=== PATIENT | male | born 1945 | race Caucasian/White ===

== ENCOUNTER 2016-07-26 19:11 | Emergency (ER) | payer BC ==
[~2016-07-26] VITALS: Wt 79.0 kg
[~2016-07-26 19:11] MED LIST: AMO500 PO; ASPI-650 PO; BP MED; CARB15DR48 BOTH EARS; IBUP-1542 PO
[2016-07-26] MEDS ORDERED: MECLIZINE 12.5 MG TAB PO ONE (20:30)
[2016-07-26 20:36] LABS: ADD SCAN DIFF NO
[2016-07-26 20:37] LABS: BASOPHILS % 0.5 % (0.0-2.0); EOSINOPHILS # 0.1 10^3/ul (0.0-0.5); EOSINOPHILS % 1.5 % (0.0-7.0); HEMATOCRIT 43.6 % (42.0-52.0); LYMPHOCYTES # 2.2 10^3/ul (0.8-2.9); LYMPHOCYTES % 28.8 % (15.0-51.0); MEAN CORPUSCULAR HGB CONC 36.7 g/dl (32.0-37.0); MEAN PLATELET VOLUME 8.4 fl (7.4-10.4); MONOCYTE # 0.7 10^3/ul (0.3-0.9); NEUTROPHIL # 4.6 10^3/ul (1.6-7.5); NEUTROPHILS % 59.9 % (39.0-77.0); PLATELET COUNT 139 10^3/UL (140-415); RED BLOOD COUNT 4.45 10^6/ul (4.70-6.10); RED CELL DISTRIBUTION WIDTH 12.9 % (11.5-14.5); WHITE BLOOD COUNT 7.6 10^3/ul (4.8-10.8)
[2016-07-26 20:52] LABS: INR 1.02; PROTIME 13.4 Sec (12.2-14.2)
[2016-07-26 20:53] LABS: PARTIAL THROMBOPLASTIN TIME 28.2 Sec (25.0-35.0)
[2016-07-26 21:03] LABS: ADD UMIC YES; URINE BILIRUBIN (Dip) NEGATIVE (NEGATIVE); URINE BLOOD (Dip) TRACE (NEGATIVE); URINE COLOR LT. YELLOW (YELLOW); URINE GLUCOSE (Dip) NEGATIVE (NEGATIVE); URINE KETONES (Dip) NEGATIVE (NEGATIVE); URINE LEUKOCYTE ESTERASE (Dip) NEGATIVE (NEGATIVE); URINE NITRITE (Dip) NEGATIVE (NEGATIVE); URINE TOTAL PROTEIN (Dip) NEGATIVE (NEGATIVE); URINE UROBILINOGEN (Dip) 0.2 E.U./dL (0.1-1.0)
[2016-07-26 21:04] LABS: ANION GAP 14 (8-16); BLOOD UREA NITROGEN 14 mg/dl (7-20); CALCIUM 9.9 mg/dl (8.4-10.2); CARBON DIOXIDE 29 mmol/L (21-31); CHLORIDE 105 mmol/L (97-110); CREATININE 1.06 mg/dl (0.61-1.24); GLUCOSE 128 mg/dl (70-220); POTASSIUM 4.1 mmol/L (3.5-5.1); SODIUM 144 mmol/L (135-144)
[2016-07-26 21:11] LABS: URINE RBCS 0-2 /HPF (0)
[2016-07-26 21:20] LABS: TROPONIN-I < 0.012 ng/ml (0.00-0.12)
[2016-07-26] MEDS ORDERED: SOD CHLORIDE 0.9% 100 ML ONE (21:31)
[2016-07-26] MEDS ORDERED: IODIXANOL LOCM 100 ML BTL ONE (21:31)
--- NOTE | 2016-07-26 22:45 | RADRPT ---
PROCEDURE: CTA Head. CLINICAL INDICATION: Headache TECHNIQUE: CTA of the head was obtained with 1 mm axial images. Sagittal and coronal reformations a nd MIPs were provided. The administered radiation dose was CTDI vol = 33 mGy, DLP = 712 mGy-cm. Liza ges were obtained prior following the intravenous contrast administration of 100 cc Visipaque 320 co ntrast. Coronal and sagittal as well as maximal intensity projection reformations were obtained. COMPARISON: There are no similar studies submitted for comparison. FINDINGS: CTA head: Carotid arteries: Some atherosclerotic calcifications are noted within the cavernous carotid arterie s without significant narrowing. Anterior cerebral arteries: Unremarkable. Middle cerebral arteries: Unremarkable. Posterior cerebral arteries: Unremarkable. Anterior communicating artery: Present. Posterior communicating arteries: Not definitely seen. Basilar artery: Unremarkable. Vertebral arteries: Unremarkable. Vertebral artery dominance: Codominant Aneurysm: No aneurysm is identified. Venous sinuses: Unremarkable. IMPRESSION: No evidence of aneurysm or intracranial arterial stenosis. RPTAT: HIKT .Lorenzo Florian MD, MD Date Time Electronically viewed and signed by .Lorenzo Florian MD, on 07/26/2016 22:45 .T/
[2016-07-26] MEDS ORDERED: ONDA4TAB11 PO (23:02)
[2016-07-26] MEDS ORDERED: MECL-77 PO (23:02)
[2016-07-26 23:22] VITALS: BP 149/92; PULSE 72; RESP 16; TEMP 98.9
--- NOTE | 2016-08-11 04:15 | ERD ---
DATE OF SERVICE: 07/26/2016 HISTORY OF PRESENT ILLNESS: This 70-year-old male comes to the emergency room feeling weak and dizz y. He also has a mild headache. The dizziness is actually a sensation of the room spinning and the refore vertigo. He has gotten nausea when he has felt this vertigo. This has been going on for the last 2 days but mostly today. He has a history of AAA that was repaired. He also has a history of hypertension. He worries that, because he had an aneurysm in his aorta, he may have one in his hea d as well. He stated he is in otherwise good state of health. REVIEW OF SYSTEMS: A 10-point review of systems negative except as in the HPI. PAST MEDICAL HISTORY: Hypertension, abdominal aortic aneurysm. PAST SURGICAL HISTORY: AAA repair. FAMILY HISTORY: Noncontributory. SOCIAL HISTORY: Denies tobacco, alcohol, and other drugs except for occasional social alcohol use. PHYSICAL EXAMINATION: VITAL SIGNS: Temperature 98.1, pulse 98, blood pressure 139/85, respirations 20, oxygen saturation 96% on room air. GENERAL: No acute distress. HEENT: Normocephalic, atraumatic. Pupils equal and reactive to light. EOMI. NECK: Supple, no JVD. No meningismus. HEART: Regular rate and rhythm. LUNGS: Clear to auscultation bilaterally. ABDOMEN: Soft, nontender, nondistended. No palpable masses. EXTREMITIES: No cyanosis, clubbing, or edema. SKIN: No rashes or other lesions. NEUROLOGIC: Alert and oriented x3, cranial nerves II through XII intact. No cerebellar deficits. Normal gait. EMERGENCY DEPARTMENT COURSE AND MEDICAL DECISION MAKING: The vertigo seems peripheral in classifica tion with mild headache. No signs of serious acute process currently. Head CT angiogram was negati ve for aneurysm or significant stenosis. He also had no hemorrhage, no mass effect, no midline shif t. Totally benign laboratory examinations. The patient was given Antivert and also given a liter o f normal saline. His headache subsided completely. No sign of cardiac ischemia or infection. As h is symptoms are much improved with Antivert, I am going to discharge him with both Antivert and Zofr an in case he develops nausea. Return precautions to the ER given as well as primary care followup. IMAGING: CT head angiogram interpretation: I see no acute process. I see no significant stenosis of the rampart of [place] and no aneurysms. There is no hemorrhage, no mass effect, no midline shift that I can see. EKG interpretation: Normal sinus rhythm, rate of 73, normal axis, normal intervals , no ST or T-wave changes concerning for acute ischemia. playground monitor interpretation: Normal si nus rhythm without arrhythmias. DISCHARGE DIAGNOSES: 1. Vertigo. 2. Nausea. 3. Headache. DISPOSITION: Home in stable condition. Dictated By: NIKOLAS SMITH/KENDRICK Conf#: [id number] DID#: [id number]
== END 2016-07-26 23:40 | disposition home or self-care (01) ==
LOC: E/R 19:11
DX: R42 Dizziness and giddiness (principal); R11.0 Nausea; R51 Headache; I10 Essential (primary) hypertension; R40.2142 Coma scale, eyes open, spontaneous, at arrival to emergency department; R40.2252 Coma scale, best verbal response, oriented, at arrival to emergency department
CPT/HCPCS: 70496; 80048; 81001; 82962; 84484; 85025; 85610; 85730; 93005; Q9967; 36415; 81003